=== PATIENT | female | born 1940 | race Caucasian/White ===

== ENCOUNTER 2023-08-07 20:11 | Inpatient (IN) | payer MEDICARE, OTHER ==
[~2023-08-07] VITALS: Ht 157.5 cm; Wt 48.1 kg
[2023-08-07] MEDS ORDERED: DEXAMETHASONE SOD PHOSPHATE 4 MG INJ IV ONE (20:30)
[2023-08-07] MEDS ORDERED: IV NORMAL SALINE 1000 ML BAG IV ONE (20:30)
[2023-08-07] MEDS ORDERED: AZITHROMYCIN IV 500 MG in IV DEXTROSE 5% 250 ML IV ONE (20:30)
[2023-08-07] MEDS ORDERED: CEFTRIAXONE 1 G in IV DEXTROSE 5% 50 ML IV ONE (20:30)
[2023-08-07 21:04] LABS: BASOPHILS # (AUTO) 0.1 K/UL (0.0-0.2); BASOPHILS % (AUTO) 1.1 % (0.0-2.0); EOSINOPHILS # (AUTO) 0.1 K/uL (0.0-0.7); EOSINOPHILS % (AUTO) 0.5 % (0.0-7.0); HEMATOCRIT 29.6 % (31.2-41.9); HEMOGLOBIN 9.5 g/dL (10.9-14.3); LYMPHOCYTES # (AUTO) 0.7 K/uL (0.8-4.8); LYMPHOCYTES % (AUTO) 5.9 % (20.5-51.5); MEAN CORPUSCULAR HGB CONC 32 g/dL (32.3-35.6); MEAN CORPUSCULAR VOLUME 68.8 fL (75.5-95.3); MONOCYTES # (AUTO) 0.5 K/uL (0.1-1.30); MONOCYTES % (AUTO) 4.4 % (0.0-11.0); NEUTROPHILS # (AUTO) 9.8 K/uL (1.8-8.9); NEUTROPHILS % (AUTO) 88.1 % (38.5-71.5); PLATELET COUNT (AUTO) 186 K/uL (179-408); RED BLOOD CELL COUNT(AUTO) 4.31 MIL/uL (3.63-4.92); RED CELL DISTRIBUTION WIDTH 15.3 % (12.3-17.7); WHITE BLOOD COUNT (AUTO) 11.1 K/uL (3.8-11.8)
[2023-08-07 21:09] LABS: DIFFERENTIAL COMMENT 1
[2023-08-07] MEDS ORDERED: CEFTRIAXONE /D5W 50ML IVPB **ER PYXIS IV ONE (21:12)
[2023-08-07 21:35] LABS: CALCIUM 8.9 mg/dL (8.5-10.1); CARBON DIOXIDE 24 mmol/L (21-32); CHLORIDE 86 mmol/L (98-107); CREATININE 0.8 mg/dL (0.6-1.3); GLUCOSE 210 mg/dL (74-106); POTASSIUM 4.5 mmol/L (3.5-5.1); SODIUM SERUM 125 mmol/L (136-145); UREA NITROGEN, BLOOD 23 mg/dL (7-18)
[2023-08-07] MEDS ORDERED: DEXAMETHASONE SOD PHOSPHATE 4 MG INJ ONE (21:43)
[2023-08-07] MEDS ORDERED: DEXAMETHASONE SOD PHOSPHATE 10 MG INJ ONE ×2 (21:45→22:43)
[2023-08-07 21:46] LABS: ANISOCYTOSIS 1+; HYPOCHROMASIA 2+; LYMPHOCYTES % (MANUAL) 10 % (20-40); MONOCYTES % (MANUAL) 4 % (2-10); NEUTROPHILS % (MANUAL) 86 % (42-75); PLATELET ESTIMATE ADEQUATE
[2023-08-07 21:48] LABS: ALANINE AMINOTRANSFERASE 52 U/L (14-59); ALBUMIN 3.7 g/dL (3.4-5.0); ALKALINE PHOSPHATASE 96 U/L (50-136); ASPARTATE AMINOTRANSFERASE 36 U/L (15-37); BILIRUBIN,DIRECT 0.3 mg/dL (0.0-0.2); BILIRUBIN,TOTAL 0.6 mg/dL (0.2-1.0); NT-PRO BNP 32976 pg/mL (0-125); TOTAL PROTEIN, SERUM 7.5 g/dL (6.4-8.2)
[2023-08-07] MEDS ORDERED: AZITHROMYCIN 500MG/ D5W 250ML IVPB **ER PYXIS ONLY IV ONE (22:41)
[2023-08-08] VITALS (7 sets, daily range): BP systolic 131–162; BP diastolic 57–87; TEMP 97.6–98.6; O2SAT 93–99
[2023-08-08] MEDS ORDERED: ACETAMINOPHEN 325 MG TABLET PO PRN (00:30)
[2023-08-08] MEDS ORDERED: MORPHINE SULFATE 2 MG/1 ML DISP.SYRIN IVP PRN (00:30)
[2023-08-08] MEDS ORDERED: ONDANSETRON 4 MG/2 ML VIAL IV PRN (00:30)
[2023-08-08] MEDS ORDERED: hydrALAZINE HCL 20 MG/1 ML VIAL IV PRN (00:30)
[2023-08-08] MEDS ORDERED: DEXTROSE 50% 50 ML DISP.SYRIN IV PRN (00:30)
[2023-08-08 02:17] LABS: *BILIRUBIN,URIN NEGATIVE (NEGATIVE); *BLOOD, URINE 1+ (NEGATIVE); *CLARITY,URINE SLIGHTLY CLOUDY (CLEAR); *COLOR,URINE YELLOW (YELLOW); *KETONES,URINE 1+ (NEGATIVE); *UROBILINOGEN,URINE 0.2 E.U./dl (NORMAL); LEUKOCYTE ESTERASE ,URINE NEGATIVE (NEGATIVE); NITRITE, URINE NEGATIVE (NEGATIVE)
[2023-08-08 02:22] LABS: *PROTEIN,URINE 3+ (NEGATIVE); UGLUCOSE 2+ (NEGATIVE)
[2023-08-08 03:39] LABS: BACTERIA,URINE MANY /HPF (NONE SEEN); WBC,URINE 0-3 /HPF (0-3)
[2023-08-08 03:40] LABS: SQUAMOUS EPITHELIAL CELL,UR FEW /HPF (NONE SEEN)
[2023-08-08] MEDS ORDERED: CEFEPIME HCL 1 G VIAL ONE (03:44)
[2023-08-08] MEDS: BLOOD SUGAR DIAGNOSTIC 1 EACH STRIP VI SCH ×4 (05:46→21:59)
[2023-08-08] MEDS ORDERED: FUROSEMIDE 40 MG/4 ML VIAL IV SCH (09:00)
[2023-08-08] MEDS: FLUTICASONE/VILANTEROL 1 EACH BLST.W.DEV INH SCH (11:03)
[2023-08-08] MEDS: HEPARIN SODIUM,PORCINE 5,000 UNITS/ML VIAL SQ SCH ×2 (11:04→17:15)
[2023-08-08] MEDS: CEFEPIME HCL 1 G in IV DEXTROSE 5% 50 ML IV SCH ×2 (11:04→21:59)
[2023-08-08] MEDS: INSULIN REGULAR, HUMAN 300 UNIT/3 ML VIAL SQ PRN ×3 (11:42→22:33)
[2023-08-08 12:53] LABS: BASOPHILS % (AUTO) 0.1 % (0.0-2.0); HEMATOCRIT 27.2 % (31.2-41.9); HEMOGLOBIN 8.9 g/dL (10.9-14.3); LYMPHOCYTES # (AUTO) 0.4 K/uL (0.8-4.8); LYMPHOCYTES % (AUTO) 9.3 % (20.5-51.5); MEAN CORPUSCULAR HEMOGLOBIN 22.4 uug (24.7-32.8); MEAN CORPUSCULAR HGB CONC 33 g/dL (32.3-35.6); MONOCYTES # (AUTO) 0.2 K/uL (0.1-1.30); MONOCYTES % (AUTO) 4.4 % (0.0-11.0); NEUTROPHILS # (AUTO) 3.6 K/uL (1.8-8.9); NEUTROPHILS % (AUTO) 86.2 % (38.5-71.5); PLATELET COUNT (AUTO) 173 K/uL (179-408); RED CELL DISTRIBUTION WIDTH 15.5 % (12.3-17.7); WHITE BLOOD COUNT (AUTO) 4.2 K/uL (3.8-11.8)
[2023-08-08 13:08] LABS: DIFFERENTIAL COMMENT 1
[2023-08-08 13:12] LABS: ALANINE AMINOTRANSFERASE 41 U/L (14-59); ALBUMIN 3.1 g/dL (3.4-5.0); ALKALINE PHOSPHATASE 88 U/L (50-136); ASPARTATE AMINOTRANSFERASE 18 U/L (15-37); BILIRUBIN,TOTAL 0.4 mg/dL (0.2-1.0); CALCIUM 8.1 mg/dL (8.5-10.1); CARBON DIOXIDE 25 mmol/L (21-32); CHLORIDE 86 mmol/L (98-107); CREATININE 0.7 mg/dL (0.6-1.3); GLUCOSE 341 mg/dL (74-106); PHOSPHOROUS 3.5 mg/dL (2.5-4.9); POTASSIUM 4.1 mmol/L (3.5-5.1); SODIUM SERUM 123 mmol/L (136-145); TOTAL PROTEIN, SERUM 6.5 g/dL (6.4-8.2); UREA NITROGEN, BLOOD 21 mg/dL (7-18)
[2023-08-08 13:36] LABS: CHOLESTEROL 136 mg/dL (<200); HDL CHOLESTEROL 64 mg/dL (40-60); TRIGLYCERIDES 45 MG/DL (30-150)
[2023-08-08 13:40] LABS: IRON, SERUM 18 ug/dL (50-175)
[2023-08-08 14:15] LABS: MAGNESIUM 0.9 mg/dL (1.8-2.4)
[2023-08-08] MEDS: MAGNESIUM SULFATE/D5W 100 ML IV SCH ×4 (15:01→20:26)
[2023-08-08] MEDS: ALBUTEROL SULFATE 2.5 MG/3 ML NEBU NEB PRN (21:29)
[2023-08-08] MEDS: GUAIFENESIN/DEXTROMETHORPHAN 5 ML UDC PO PRN (21:59)
[2023-08-09] VITALS (7 sets, daily range): BP systolic 119–141; BP diastolic 33–64; TEMP 97.5–98.6; O2SAT 96–100
[2023-08-09] MEDS: ALBUTEROL SULFATE 2.5 MG/3 ML NEBU NEB PRN (01:47)
[2023-08-09] MEDS: GUAIFENESIN/DEXTROMETHORPHAN 5 ML UDC PO PRN (02:22)
[2023-08-09 06:36] LABS: BASOPHILS % (AUTO) 0.1 % (0.0-2.0); EOSINOPHILS % (AUTO) 0.3 % (0.0-7.0); HEMATOCRIT 23.5 % (31.2-41.9); HEMOGLOBIN 7.9 g/dL (10.9-14.3); LYMPHOCYTES # (AUTO) 1.4 K/uL (0.8-4.8); LYMPHOCYTES % (AUTO) 18.1 % (20.5-51.5); MEAN CORPUSCULAR HEMOGLOBIN 22.5 uug (24.7-32.8); MEAN CORPUSCULAR HGB CONC 34 g/dL (32.3-35.6); MEAN CORPUSCULAR VOLUME 67.2 fL (75.5-95.3); MONOCYTES # (AUTO) 0.6 K/uL (0.1-1.30); MONOCYTES % (AUTO) 7.1 % (0.0-11.0); NEUTROPHILS # (AUTO) 5.8 K/uL (1.8-8.9); NEUTROPHILS % (AUTO) 74.4 % (38.5-71.5); PLATELET COUNT (AUTO) 203 K/uL (179-408); RED CELL DISTRIBUTION WIDTH 15.2 % (12.3-17.7); WHITE BLOOD COUNT (AUTO) 7.9 K/uL (3.8-11.8)
[2023-08-09 06:51] LABS: DIFFERENTIAL COMMENT 1
[2023-08-09] MEDS: BLOOD SUGAR DIAGNOSTIC 1 EACH STRIP VI SCH ×4 (06:56→21:00)
[2023-08-09 07:06] LABS: IRON, SERUM 21 ug/dL (50-175); THYROID STIMULATING HORMONE 0.532 mIU/mL (0.358-3.740)
[2023-08-09 07:20] LABS: ALANINE AMINOTRANSFERASE 37 U/L (14-59); ALBUMIN 2.8 g/dL (3.4-5.0); ALKALINE PHOSPHATASE 69 U/L (50-136); ASPARTATE AMINOTRANSFERASE 15 U/L (15-37); BILIRUBIN,TOTAL 0.3 mg/dL (0.2-1.0); CALCIUM 8.3 mg/dL (8.5-10.1); CARBON DIOXIDE 27 mmol/L (21-32); CHLORIDE 88 mmol/L (98-107); CREATININE 0.7 mg/dL (0.6-1.3); FERRITIN 180 ng/mL (8-252); GLUCOSE 157 mg/dL (74-106); MAGNESIUM 2.2 mg/dL (1.8-2.4); PHOSPHOROUS 2.8 mg/dL (2.5-4.9); POTASSIUM 3.4 mmol/L (3.5-5.1); SODIUM SERUM 124 mmol/L (136-145); TOTAL PROTEIN, SERUM 5.7 g/dL (6.4-8.2); UREA NITROGEN, BLOOD 23 mg/dL (7-18); URIC ACID 3.6 mg/dL (2.6-6.0)
[2023-08-09] MEDS ORDERED: FUROSEMIDE 40 MG/4 ML VIAL IV SCH (09:00)
[2023-08-09] MEDS ORDERED: SITA100T PO (10:45)
[2023-08-09] MEDS ORDERED: GLIP10TA11 PO (10:45)
[2023-08-09] MEDS ORDERED: LOSA25TA27 PO (10:49)
[2023-08-09] MEDS ORDERED: MIRT-94 PO (10:49)
[2023-08-09] MEDS ORDERED: ASPI81TA31 PO (10:49)
[2023-08-09] MEDS ORDERED: ATOR20TA PO (10:49)
[2023-08-09] MEDS ORDERED: OMEP40CA21 PO (10:49)
[2023-08-09] MEDS ORDERED: METF750T46 PO (10:49)
[2023-08-09] MEDS ORDERED: METO25TA6 PO (10:49)
[2023-08-09] MEDS ORDERED: LEVO5TAB13 PO (10:49)
[2023-08-09] MEDS: HEPARIN SODIUM,PORCINE 5,000 UNITS/ML VIAL SQ SCH ×2 (11:01→18:03)
[2023-08-09] MEDS: FLUTICASONE/VILANTEROL 1 EACH BLST.W.DEV INH SCH (11:02)
[2023-08-09] MEDS: CEFEPIME HCL 1 G in IV DEXTROSE 5% 50 ML IV SCH (11:02)
[2023-08-09] MEDS ORDERED: POTASSIUM CHLORIDE 20 MEQ POWDER PACKET PO ONE (11:45)
[2023-08-09] MEDS: INSULIN REGULAR, HUMAN 300 UNIT/3 ML VIAL SQ PRN ×2 (12:05→18:27)
[2023-08-10] VITALS (8 sets, daily range): BP systolic 119–142; BP diastolic 57–71; TEMP 97.5–98.6; O2SAT 94–100
[2023-08-10] MEDS: GUAIFENESIN/DEXTROMETHORPHAN 5 ML UDC PO PRN ×3 (00:17→20:54)
[2023-08-10] MEDS: ALBUTEROL SULFATE 2.5 MG/3 ML NEBU NEB PRN ×2 (01:56→22:45)
[2023-08-10] MEDS: BLOOD SUGAR DIAGNOSTIC 1 EACH STRIP VI SCH ×4 (06:45→20:11)
[2023-08-10 06:51] LABS: BASOPHILS % (AUTO) 0.3 % (0.0-2.0); EOSINOPHILS % (AUTO) 0.4 % (0.0-7.0); HEMATOCRIT 27.8 % (31.2-41.9); HEMOGLOBIN 9.2 g/dL (10.9-14.3); LYMPHOCYTES # (AUTO) 1.1 K/uL (0.8-4.8); LYMPHOCYTES % (AUTO) 16.6 % (20.5-51.5); MEAN CORPUSCULAR HEMOGLOBIN 22.3 uug (24.7-32.8); MEAN CORPUSCULAR HGB CONC 33 g/dL (32.3-35.6); MEAN CORPUSCULAR VOLUME 67.3 fL (75.5-95.3); MONOCYTES # (AUTO) 0.6 K/uL (0.1-1.30); MONOCYTES % (AUTO) 9.3 % (0.0-11.0); NEUTROPHILS # (AUTO) 4.8 K/uL (1.8-8.9); NEUTROPHILS % (AUTO) 73.4 % (38.5-71.5); PLATELET COUNT (AUTO) 244 K/uL (179-408); RED BLOOD CELL COUNT(AUTO) 4.13 MIL/uL (3.63-4.92); WHITE BLOOD COUNT (AUTO) 6.6 K/uL (3.8-11.8)
[2023-08-10 07:15] LABS: DIFFERENTIAL COMMENT 1
[2023-08-10 07:27] LABS: CALCIUM 8.7 mg/dL (8.5-10.1); CARBON DIOXIDE 31 mmol/L (21-32); CHLORIDE 89 mmol/L (98-107); GLUCOSE 203 mg/dL (74-106); MAGNESIUM 1.6 mg/dL (1.8-2.4); PHOSPHOROUS 3.4 mg/dL (2.5-4.9); POTASSIUM 3.7 mmol/L (3.5-5.1); SODIUM SERUM 128 mmol/L (136-145); UREA NITROGEN, BLOOD 21 mg/dL (7-18)
[2023-08-10] MEDS ORDERED: POTASSIUM CHLORIDE 20 MEQ POWDER PACKET PO ONE (08:30)
[2023-08-10] MEDS: CEFEPIME HCL 1 G in IV DEXTROSE 5% 50 ML IV SCH (09:31)
[2023-08-10] MEDS: FLUTICASONE/VILANTEROL 1 EACH BLST.W.DEV INH SCH (09:31)
[2023-08-10] MEDS: HEPARIN SODIUM,PORCINE 5,000 UNITS/ML VIAL SQ SCH ×2 (09:33→17:46)
[2023-08-10] MEDS: MAGNESIUM SULFATE/D5W 100 ML IV SCH ×2 (10:16→12:44)
[2023-08-10] MEDS: INSULIN REGULAR, HUMAN 300 UNIT/3 ML VIAL SQ PRN ×2 (12:45→17:46)
[2023-08-10] MEDS: glipiZIDE 5 MG TABLET PO SCH (17:42)
[2023-08-10] MEDS: METFORMIN HCL 500 MG TABLET PO SCH (17:42)
[2023-08-10] MEDS: METOPROLOL TARTRATE 25 MG TABLET PO SCH (17:43)
[2023-08-10] MEDS: MIRTAZAPINE 15 MG TABLET PO SCH (20:12)
[2023-08-11] MEDS: GUAIFENESIN/DEXTROMETHORPHAN 5 ML UDC PO PRN ×3 (03:31→21:02)
[2023-08-11] MEDS: ALBUTEROL SULFATE 2.5 MG/3 ML NEBU NEB PRN (03:35)
[2023-08-11 03:37] VITALS: O2SAT 98
[2023-08-11 03:47] VITALS: O2SAT 99
[2023-08-11 04:00] VITALS: BP 121/56; TEMP 97.9; O2SAT 97
[2023-08-11] MEDS: BLOOD SUGAR DIAGNOSTIC 1 EACH STRIP VI SCH ×4 (06:33→20:53)
[2023-08-11] MEDS: glipiZIDE 5 MG TABLET PO SCH ×2 (06:33→17:27)
[2023-08-11] MEDS ORDERED: LOSARTAN POTASSIUM 25 MG TABLET PO SCH (09:00)
[2023-08-11] MEDS: METFORMIN HCL 500 MG TABLET PO SCH ×2 (09:07→17:27)
[2023-08-11] MEDS: ASPIRIN 81 MG TAB.CHEW PO SCH (09:07)
[2023-08-11] MEDS: METOPROLOL TARTRATE 25 MG TABLET PO SCH ×2 (09:08→17:28)
[2023-08-11] MEDS: PROTEIN SUPPLEMENT (PROSTAT) 30 ML LIQUID PO SCH (09:08)
[2023-08-11] MEDS: CEFEPIME HCL 1 G in IV DEXTROSE 5% 50 ML IV SCH (09:09)
[2023-08-11] MEDS: FLUTICASONE/VILANTEROL 1 EACH BLST.W.DEV INH SCH (09:09)
[2023-08-11] MEDS: INSULIN REGULAR, HUMAN 300 UNIT/3 ML VIAL SQ PRN ×2 (09:14→13:23)
[2023-08-11] MEDS: HEPARIN SODIUM,PORCINE 5,000 UNITS/ML VIAL SQ SCH ×2 (09:15→17:30)
[2023-08-11 10:19] LABS: ALANINE AMINOTRANSFERASE 21 U/L (14-59); ALBUMIN 2.9 g/dL (3.4-5.0); ALKALINE PHOSPHATASE 76 U/L (50-136); ASPARTATE AMINOTRANSFERASE 9 U/L (15-37); BILIRUBIN,TOTAL 0.3 mg/dL (0.2-1.0); CALCIUM 8.9 mg/dL (8.5-10.1); CARBON DIOXIDE 30 mmol/L (21-32); CHLORIDE 91 mmol/L (98-107); CREATININE 0.7 mg/dL (0.6-1.3); GLUCOSE 201 mg/dL (74-106); MAGNESIUM 1.8 mg/dL (1.8-2.4); PHOSPHOROUS 3.8 mg/dL (2.5-4.9); POTASSIUM 3.9 mmol/L (3.5-5.1); SODIUM SERUM 128 mmol/L (136-145); TOTAL PROTEIN, SERUM 6.3 g/dL (6.4-8.2); UREA NITROGEN, BLOOD 19 mg/dL (7-18)
[2023-08-11 10:28] LABS: BASOPHILS % (AUTO) 0.8 % (0.0-2.0); DIFFERENTIAL COMMENT 0; EOSINOPHILS % (AUTO) 0.6 % (0.0-7.0); HEMATOCRIT 26.4 % (31.2-41.9); HEMOGLOBIN 8.6 g/dL (10.9-14.3); LYMPHOCYTES % (AUTO) 16.9 % (20.5-51.5); MEAN CORPUSCULAR HEMOGLOBIN 22.1 uug (24.7-32.8); MEAN CORPUSCULAR HGB CONC 33 g/dL (32.3-35.6); MONOCYTES # (AUTO) 0.5 K/uL (0.1-1.30); MONOCYTES % (AUTO) 8.9 % (0.0-11.0); NEUTROPHILS # (AUTO) 4.4 K/uL (1.8-8.9); NEUTROPHILS % (AUTO) 72.8 % (38.5-71.5); PLATELET COUNT (AUTO) 244 K/uL (179-408); RED BLOOD CELL COUNT(AUTO) 3.88 MIL/uL (3.63-4.92); RED CELL DISTRIBUTION WIDTH 15.1 % (12.3-17.7); WHITE BLOOD COUNT (AUTO) 6.1 K/uL (3.8-11.8)
[2023-08-11 10:43] LABS: NEUTROPHILS % (MANUAL) 0 % (42-75)
[2023-08-11 10:44] LABS: LYMPHOCYTES % (MANUAL) 0 % (20-40)
[2023-08-11 11:32] VITALS: BP 97/46; TEMP 98.3; O2SAT 98
[2023-08-11 16:00] VITALS: BP 110/52; TEMP 98.4; O2SAT 96
[2023-08-11 20:00] VITALS: BP 142/65; TEMP 98.3; O2SAT 96
[2023-08-11] MEDS: MIRTAZAPINE 15 MG TABLET PO SCH (20:52)
[2023-08-12 04:00] VITALS: BP 120/51; TEMP 98.5; O2SAT 94
[2023-08-12] MEDS: BLOOD SUGAR DIAGNOSTIC 1 EACH STRIP VI SCH ×2 (06:51→12:20)
[2023-08-12] MEDS: glipiZIDE 5 MG TABLET PO SCH (06:53)
[2023-08-12 07:41] LABS: BASOPHILS % (AUTO) 0.3 % (0.0-2.0); EOSINOPHILS # (AUTO) 0.1 K/uL (0.0-0.7); HEMATOCRIT 25.6 % (31.2-41.9); HEMOGLOBIN 8.4 g/dL (10.9-14.3); LYMPHOCYTES # (AUTO) 1.8 K/uL (0.8-4.8); LYMPHOCYTES % (AUTO) 23.6 % (20.5-51.5); MEAN CORPUSCULAR HEMOGLOBIN 22.5 uug (24.7-32.8); MEAN CORPUSCULAR HGB CONC 33 g/dL (32.3-35.6); MEAN CORPUSCULAR VOLUME 68.6 fL (75.5-95.3); MONOCYTES # (AUTO) 0.7 K/uL (0.1-1.30); MONOCYTES % (AUTO) 9.3 % (0.0-11.0); NEUTROPHILS # (AUTO) 4.8 K/uL (1.8-8.9); NEUTROPHILS % (AUTO) 64.8 % (38.5-71.5); PLATELET COUNT (AUTO) 258 K/uL (179-408); RED BLOOD CELL COUNT(AUTO) 3.72 MIL/uL (3.63-4.92); RED CELL DISTRIBUTION WIDTH 15.1 % (12.3-17.7); WHITE BLOOD COUNT (AUTO) 7.5 K/uL (3.8-11.8)
[2023-08-12 07:55] LABS: DIFFERENTIAL COMMENT 1
[2023-08-12 07:56] LABS: CALCIUM 8.9 mg/dL (8.5-10.1); CARBON DIOXIDE 31 mmol/L (21-32); CHLORIDE 94 mmol/L (98-107); CREATININE 0.6 mg/dL (0.6-1.3); GLUCOSE 133 mg/dL (74-106); MAGNESIUM 1.7 mg/dL (1.8-2.4); PHOSPHOROUS 3.9 mg/dL (2.5-4.9); POTASSIUM 4.3 mmol/L (3.5-5.1); SODIUM SERUM 130 mmol/L (136-145); UREA NITROGEN, BLOOD 30 mg/dL (7-18)
[2023-08-12] MEDS: METOPROLOL TARTRATE 25 MG TABLET PO SCH (09:00)
[2023-08-12 09:28] VITALS: BP 108/49; TEMP 98.5; O2SAT 91
[2023-08-12] MEDS ORDERED: ALBU18HF2 INH (09:28)
[2023-08-12] MEDS ORDERED: AZIT500T4 PO (09:28)
[2023-08-12] MEDS ORDERED: FLUT1BLS INH (09:28)
[2023-08-12] MEDS ORDERED: MAGNESIUM OXIDE 400 MG TABLET PO ONE (09:30)
[2023-08-12] MEDS: ASPIRIN 81 MG TAB.CHEW PO SCH (09:31)
[2023-08-12] MEDS: METFORMIN HCL 500 MG TABLET PO SCH (09:31)
[2023-08-12] MEDS: HEPARIN SODIUM,PORCINE 5,000 UNITS/ML VIAL SQ SCH (09:35)
[2023-08-12] MEDS: PROTEIN SUPPLEMENT (PROSTAT) 30 ML LIQUID PO SCH (09:36)
[2023-08-12] MEDS: FLUTICASONE/VILANTEROL 1 EACH BLST.W.DEV INH SCH (09:37)
[2023-08-12] MEDS: CEFEPIME HCL 1 G in IV DEXTROSE 5% 50 ML IV SCH (09:37)
[2023-08-12 11:57] VITALS: BP 122/59; TEMP 98.4; O2SAT 95
[2023-08-12] MEDS: INSULIN REGULAR, HUMAN 300 UNIT/3 ML VIAL SQ PRN (12:22)
[2023-08-12] MEDS: GUAIFENESIN/DEXTROMETHORPHAN 5 ML UDC PO PRN (12:51)
[2023-08-12 12:54] VITALS: BP 115/45; TEMP 99; O2SAT 95
[2023-08-12] MEDS ORDERED: CEFEPIME HCL 1 G in IV DEXTROSE 5% 50 ML IV SCH (17:00)
== END 2023-08-12 13:00 | DRG 193 ==
LOC: ER 20:13 → TELE3 08-08 02:06 → MEDSURG3 08-09 13:00 → MED 08-09 19:18
PROVIDERS: ADMIT Internal Medicine; ATTEND Internal Medicine
DX: J15.9 Unspecified bacterial pneumonia (principal); G93.41 Metabolic encephalopathy; I21.A1 Myocardial infarction type 2; J96.00 Acute respiratory failure, unspecified whether with hypoxia or hypercapnia; I50.33 Acute on chronic diastolic (congestive) heart failure; J98.11 Atelectasis; I45.2 Bifascicular block; E87.1 Hypo-osmolality and hyponatremia; N39.0 Urinary tract infection, site not specified; D68.59 Other primary thrombophilia; I31.39 Other pericardial effusion (noninflammatory); I11.0 Hypertensive heart disease with heart failure; E78.5 Hyperlipidemia, unspecified; I70.0 Atherosclerosis of aorta; D50.9 Iron deficiency anemia, unspecified; B95.4 Other streptococcus as the cause of diseases classified elsewhere; Z74.09 Other reduced mobility; E11.65 Type 2 diabetes mellitus with hyperglycemia; K44.9 Diaphragmatic hernia without obstruction or gangrene; Z88.0 Allergy status to penicillin; I08.0 Rheumatic disorders of both mitral and aortic valves; H91.90 Unspecified hearing loss, unspecified ear; J45.909 Unspecified asthma, uncomplicated; F03.90 Unspecified dementia, unspecified severity, without behavioral disturbance, psychotic disturbance, mood disturbance, and anxiety; I25.10 Atherosclerotic heart disease of native coronary artery without angina pectoris; Z79.82 Long term (current) use of aspirin; Z79.84 Long term (current) use of oral hypoglycemic drugs; Z79.899 Other long term (current) drug therapy
CPT/HCPCS: 36415; 70030-TC; 71045; 71250; 82533; 83550; 83605; 83735; 84100; 84443; 84484; 84550; 85025; 85730; 86140; 87040; 93005; 93307; 94640; 94664; C1758; G0378; J0456; J0692; J0696; J1100; J1644; J1815; J1940; J2405; J3475; J7040

== ENCOUNTER 2023-08-12 13:13 | Inpatient (IN) | payer MEDICARE, OTHER ==
[~2023-08-12] VITALS: Ht 157.5 cm; Wt 44.4 kg
[~2023-08-12 13:13] MED LIST: ALBU18HF2 INH; ASPI81TA31 PO; ATOR20TA PO; AZIT500T4 PO; FLUT1BLS INH; GLIP10TA11 PO; LEVO5TAB13 PO; LOSA25TA27 PO; METF750T46 PO; METO25TA6 PO; MIRT-94 PO; OMEP40CA21 PO; SITA100T PO
[2023-08-12] MEDS ORDERED: ACETAMINOPHEN 325 MG TABLET PO PRN (14:30)
[2023-08-12] MEDS ORDERED: REMEDY ESSENTIAL ZINC PASTE 113 GM TP PRN (14:30)
[2023-08-12] MEDS ORDERED: HYDROCODONE/APAP 5-325MG TABLET PO PRN (14:30)
[2023-08-12] MEDS ORDERED: MAGNESIUM HYDROXIDE 30 ML LIQUID UDC PO PRN (14:30)
[2023-08-12 15:07] VITALS: BP 118/44; TEMP 98.2; O2SAT 94
[2023-08-12] MEDS ORDERED: ALBUTEROL SULFATE 8 GM HFA.AER.AD INH PRN (18:30)
[2023-08-12] MEDS: METFORMIN XR 500 MG TAB.SR.24H PO ONE (18:49)
[2023-08-12] MEDS: METOPROLOL TARTRATE 25 MG TABLET PO SCH (18:49)
[2023-08-12 20:00] VITALS: TEMP 99
[2023-08-12 20:05] VITALS: BP 123/52; TEMP 98; O2SAT 93
[2023-08-12] MEDS: DOCUSATE SODIUM 100 MG CAPSULE PO SCH (20:23)
[2023-08-12] MEDS: MIRTAZAPINE 15 MG TABLET PO SCH (20:23)
[2023-08-12] MEDS: ATORVASTATIN 20 MG TABLET PO SCH (20:23)
[2023-08-12] MEDS ORDERED: CEFEPIME HCL 1 G in IV DEXTROSE 5% 50 ML IV SCH (21:00)
[2023-08-13 04:05] VITALS: BP 127/54; TEMP 98.4; O2SAT 95
[2023-08-13] MEDS ORDERED: ALBUTEROL SULFATE 2.5 MG/3 ML NEBU NEB PRN (04:45)
[2023-08-13] MEDS: GUAIFENESIN/DEXTROMETHORPHAN 5 ML UDC PO PRN (05:29)
[2023-08-13] MEDS: PANTOPRAZOLE SODIUM 40 MG TABLET.DR PO SCH (06:10)
[2023-08-13 06:54] LABS: BASOPHILS % (AUTO) 0.6 % (0.0-2.0); EOSINOPHILS # (AUTO) 0.2 K/uL (0.0-0.7); EOSINOPHILS % (AUTO) 3.1 % (0.0-7.0); HEMATOCRIT 24.9 % (31.2-41.9); LYMPHOCYTES # (AUTO) 1.6 K/uL (0.8-4.8); LYMPHOCYTES % (AUTO) 27.8 % (20.5-51.5); MEAN CORPUSCULAR HEMOGLOBIN 22.1 uug (24.7-32.8); MEAN CORPUSCULAR HGB CONC 32 g/dL (32.3-35.6); MEAN CORPUSCULAR VOLUME 68.7 fL (75.5-95.3); MONOCYTES # (AUTO) 0.6 K/uL (0.1-1.30); MONOCYTES % (AUTO) 9.7 % (0.0-11.0); NEUTROPHILS # (AUTO) 3.4 K/uL (1.8-8.9); NEUTROPHILS % (AUTO) 58.8 % (38.5-71.5); PLATELET COUNT (AUTO) 232 K/uL (179-408); RED BLOOD CELL COUNT(AUTO) 3.62 MIL/uL (3.63-4.92); RED CELL DISTRIBUTION WIDTH 14.7 % (12.3-17.7); WHITE BLOOD COUNT (AUTO) 5.8 K/uL (3.8-11.8)
[2023-08-13 07:12] LABS: DIFFERENTIAL COMMENT 1
[2023-08-13 07:14] LABS: CARBON DIOXIDE 30 mmol/L (21-32); CHLORIDE 97 mmol/L (98-107); CHOLESTEROL 133 mg/dL (<200); CREATININE 0.6 mg/dL (0.6-1.3); GLUCOSE 188 mg/dL (74-106); HDL CHOLESTEROL 53 mg/dL (40-60); MAGNESIUM 1.6 mg/dL (1.8-2.4); PHOSPHOROUS 3.6 mg/dL (2.5-4.9); POTASSIUM 4.1 mmol/L (3.5-5.1); SODIUM SERUM 134 mmol/L (136-145); TRIGLYCERIDES 124 MG/DL (30-150); UREA NITROGEN, BLOOD 17 mg/dL (7-18)
[2023-08-13 07:39] VITALS: BP 134/57; TEMP 98.7; O2SAT 96
[2023-08-13] MEDS ORDERED: METFORMIN HCL 750 MG PO SCH (08:00)
[2023-08-13] MEDS: METOPROLOL TARTRATE 25 MG TABLET PO SCH (09:00)
[2023-08-13] MEDS ORDERED: Medication Not On Formulary EA (Omeprazole 40 MG) PO SCH (09:00)
[2023-08-13] MEDS ORDERED: LEVOCETIRIZINE DIHYDROCHLORIDE PO SCH (09:00)
[2023-08-13] MEDS ORDERED: CEFEPIME HCL 1 G in IV DEXTROSE 5% 50 ML IV SCH (09:00)
[2023-08-13] MEDS ORDERED: Medication Not On Formulary EA (Sitagliptin Phosphate (Januvia) 100 MG) PO SCH (09:00)
[2023-08-13] MEDS: AZITHROMYCIN 250 MG TABLET PO SCH (09:18)
[2023-08-13] MEDS: ASPIRIN 81 MG TAB.CHEW PO SCH (09:20)
[2023-08-13] MEDS: LINAGLIPTIN 5 MG TABLET PO SCH (09:20)
[2023-08-13] MEDS: METFORMIN XR 500 MG TAB.SR.24H PO SCH ×2 (09:21→17:20)
[2023-08-13] MEDS: LOSARTAN POTASSIUM 25 MG TABLET PO SCH (09:21)
[2023-08-13] MEDS: MAGNESIUM OXIDE 400 MG TABLET PO ONE (09:37)
[2023-08-13] MEDS: FLUTICASONE/VILANTEROL 1 EACH BLST.W.DEV INH SCH (10:32)
[2023-08-13 21:32] VITALS: BP 128/47; TEMP 97.9; O2SAT 99
[2023-08-14] MEDS: ONDANSETRON 4 MG/2 ML VIAL IV PRN (01:10)
[2023-08-14 04:15] VITALS: BP 148/52; TEMP 97.7; O2SAT 99
[2023-08-14 08:00] VITALS: TEMP 97.6
[2023-08-14 16:07] VITALS: TEMP 97.2
[2023-08-14 20:24] VITALS: BP 127/48; TEMP 98.1; O2SAT 94
[2023-08-15] MEDS: ZOLPIDEM 5 MG TABLET PO PRN (01:40)
[2023-08-15 04:55] VITALS: BP 114/39; TEMP 97.5; O2SAT 94
[2023-08-15 06:15] LABS: BASOPHILS % (AUTO) 0.6 % (0.0-2.0); EOSINOPHILS # (AUTO) 0.3 K/uL (0.0-0.7); EOSINOPHILS % (AUTO) 4.2 % (0.0-7.0); HEMATOCRIT 27.3 % (31.2-41.9); HEMOGLOBIN 8.9 g/dL (10.9-14.3); LYMPHOCYTES # (AUTO) 1.4 K/uL (0.8-4.8); LYMPHOCYTES % (AUTO) 21.7 % (20.5-51.5); MEAN CORPUSCULAR HEMOGLOBIN 22.4 uug (24.7-32.8); MEAN CORPUSCULAR HGB CONC 33 g/dL (32.3-35.6); MONOCYTES # (AUTO) 0.6 K/uL (0.1-1.30); MONOCYTES % (AUTO) 9.4 % (0.0-11.0); NEUTROPHILS # (AUTO) 4.1 K/uL (1.8-8.9); NEUTROPHILS % (AUTO) 64.1 % (38.5-71.5); PLATELET COUNT (AUTO) 242 K/uL (179-408); RED BLOOD CELL COUNT(AUTO) 3.95 MIL/uL (3.63-4.92); RED CELL DISTRIBUTION WIDTH 15.4 % (12.3-17.7); WHITE BLOOD COUNT (AUTO) 6.4 K/uL (3.8-11.8)
[2023-08-15 06:45] LABS: CARBON DIOXIDE 28 mmol/L (21-32); CHLORIDE 98 mmol/L (98-107); CREATININE 0.7 mg/dL (0.6-1.3); GLUCOSE 158 mg/dL (74-106); MAGNESIUM 1.4 mg/dL (1.8-2.4); SODIUM SERUM 136 mmol/L (136-145); UREA NITROGEN, BLOOD 12 mg/dL (7-18)
[2023-08-15 06:47] LABS: DIFFERENTIAL COMMENT 1
[2023-08-15 08:31] VITALS: BP 122/45; TEMP 97.3; O2SAT 96
[2023-08-15] MEDS: MAGNESIUM OXIDE 400 MG TABLET PO ONE (10:10)
[2023-08-15] MEDS: MAGNESIUM SULFATE/D5W 100 ML IV SCH (10:41)
[2023-08-15] MEDS ORDERED: MAGNESIUM OXIDE 400 MG TABLET PO ONE (11:00)
[2023-08-15 13:07] VITALS: TEMP 97.6
[2023-08-15 15:53] VITALS: BP 138/63; TEMP 98.2; O2SAT 97
[2023-08-15] MEDS: GLUCERNA SHAKE 237 ML CAN PO SCH (18:20)
[2023-08-15 20:00] VITALS: BP 139/64; TEMP 97.9; O2SAT 97
[2023-08-16 04:00] VITALS: BP 122/56; TEMP 98.2; O2SAT 97
[2023-08-16 06:38] LABS: BASOPHILS % (AUTO) 0.4 % (0.0-2.0); EOSINOPHILS # (AUTO) 0.1 K/uL (0.0-0.7); EOSINOPHILS % (AUTO) 1.7 % (0.0-7.0); HEMATOCRIT 26.4 % (31.2-41.9); HEMOGLOBIN 8.6 g/dL (10.9-14.3); LYMPHOCYTES # (AUTO) 1.4 K/uL (0.8-4.8); LYMPHOCYTES % (AUTO) 20.8 % (20.5-51.5); MEAN CORPUSCULAR HEMOGLOBIN 22.6 uug (24.7-32.8); MEAN CORPUSCULAR HGB CONC 33 g/dL (32.3-35.6); MEAN CORPUSCULAR VOLUME 69.2 fL (75.5-95.3); MONOCYTES # (AUTO) 0.5 K/uL (0.1-1.30); MONOCYTES % (AUTO) 7.9 % (0.0-11.0); NEUTROPHILS # (AUTO) 4.7 K/uL (1.8-8.9); NEUTROPHILS % (AUTO) 69.2 % (38.5-71.5); PLATELET COUNT (AUTO) 218 K/uL (179-408); RED BLOOD CELL COUNT(AUTO) 3.81 MIL/uL (3.63-4.92); RED CELL DISTRIBUTION WIDTH 15.1 % (12.3-17.7); WHITE BLOOD COUNT (AUTO) 6.8 K/uL (3.8-11.8)
[2023-08-16 07:05] LABS: CALCIUM 8.8 mg/dL (8.5-10.1); CARBON DIOXIDE 28 mmol/L (21-32); CHLORIDE 96 mmol/L (98-107); CREATININE 0.5 mg/dL (0.6-1.3); GLUCOSE 174 mg/dL (74-106); MAGNESIUM 1.6 mg/dL (1.8-2.4); PHOSPHOROUS 3.4 mg/dL (2.5-4.9); SODIUM SERUM 132 mmol/L (136-145); UREA NITROGEN, BLOOD 14 mg/dL (7-18)
[2023-08-16 07:08] LABS: DIFFERENTIAL COMMENT 1
[2023-08-16 08:00] VITALS: BP 115/59; TEMP 98.3; O2SAT 99
[2023-08-16] MEDS: MAGNESIUM OXIDE 400 MG TABLET PO ONE (10:02)
[2023-08-16] MEDS: MAGNESIUM SULFATE/D5W 100 ML IV SCH (10:02)
[2023-08-16 16:00] VITALS: BP 115/54; TEMP 98.8; O2SAT 96
[2023-08-16 20:15] VITALS: BP 117/53; TEMP 98.7; O2SAT 99
[2023-08-17 05:45] VITALS: BP 123/56; TEMP 97.3; O2SAT 96
[2023-08-17 07:34] VITALS: BP 125/57; TEMP 97.9; O2SAT 98
[2023-08-17 07:46] LABS: BASOPHILS % (AUTO) 0.6 % (0.0-2.0); EOSINOPHILS # (AUTO) 0.1 K/uL (0.0-0.7); HEMATOCRIT 25.9 % (31.2-41.9); HEMOGLOBIN 8.4 g/dL (10.9-14.3); LYMPHOCYTES # (AUTO) 1.4 K/uL (0.8-4.8); LYMPHOCYTES % (AUTO) 22.5 % (20.5-51.5); MEAN CORPUSCULAR HEMOGLOBIN 22.5 uug (24.7-32.8); MEAN CORPUSCULAR HGB CONC 32 g/dL (32.3-35.6); MEAN CORPUSCULAR VOLUME 69.6 fL (75.5-95.3); MONOCYTES # (AUTO) 0.6 K/uL (0.1-1.30); MONOCYTES % (AUTO) 9.2 % (0.0-11.0); NEUTROPHILS % (AUTO) 65.7 % (38.5-71.5); PLATELET COUNT (AUTO) 224 K/uL (179-408); RED BLOOD CELL COUNT(AUTO) 3.72 MIL/uL (3.63-4.92); RED CELL DISTRIBUTION WIDTH 15.7 % (12.3-17.7); WHITE BLOOD COUNT (AUTO) 6.1 K/uL (3.8-11.8)
[2023-08-17 07:56] LABS: CALCIUM 8.7 mg/dL (8.5-10.1); CARBON DIOXIDE 28 mmol/L (21-32); CHLORIDE 97 mmol/L (98-107); CREATININE 0.5 mg/dL (0.6-1.3); GLUCOSE 173 mg/dL (74-106); MAGNESIUM 1.9 mg/dL (1.8-2.4); PHOSPHOROUS 3.7 mg/dL (2.5-4.9); SODIUM SERUM 132 mmol/L (136-145); UREA NITROGEN, BLOOD 17 mg/dL (7-18)
[2023-08-17 08:03] LABS: DIFFERENTIAL COMMENT 1
[2023-08-17 11:55] LABS: EOSINOPHILS % (MANUAL) 5 % (0-8); HYPOCHROMASIA 1+; LYMPHOCYTES % (MANUAL) 24 % (20-40); MONOCYTES % (MANUAL) 2 % (2-10); NEUTROPHILS % (MANUAL) 69 % (42-75); PLATELET ESTIMATE ADEQUATE
[2023-08-17 11:56] LABS: ANISOCYTOSIS 1+
[2023-08-17 15:57] VITALS: BP 100/67; TEMP 98.7; O2SAT 97
[2023-08-17 19:45] VITALS: BP 119/56; TEMP 97.3; O2SAT 96
[2023-08-18 05:15] VITALS: BP 115/53; TEMP 97.7; O2SAT 95
[2023-08-18 08:46] VITALS: BP 124/56; TEMP 98.6; O2SAT 94
[2023-08-18 15:46] VITALS: BP 123/61; TEMP 98.5; O2SAT 96
[2023-08-18 20:05] VITALS: BP 125/60; TEMP 98.8; O2SAT 97
[2023-08-19 04:03] VITALS: BP 130/72; TEMP 98.6; O2SAT 97
[2023-08-19 07:41] VITALS: BP 127/58; TEMP 98.6; O2SAT 98
[2023-08-19 07:53] LABS: BASOPHILS % (AUTO) 0.7 % (0.0-2.0); EOSINOPHILS # (AUTO) 0.1 K/uL (0.0-0.7); HEMATOCRIT 26.1 % (31.2-41.9); HEMOGLOBIN 8.5 g/dL (10.9-14.3); LYMPHOCYTES # (AUTO) 1.4 K/uL (0.8-4.8); LYMPHOCYTES % (AUTO) 24.5 % (20.5-51.5); MEAN CORPUSCULAR HEMOGLOBIN 22.8 uug (24.7-32.8); MEAN CORPUSCULAR HGB CONC 33 g/dL (32.3-35.6); MEAN CORPUSCULAR VOLUME 69.6 fL (75.5-95.3); MONOCYTES # (AUTO) 0.5 K/uL (0.1-1.30); MONOCYTES % (AUTO) 9.6 % (0.0-11.0); NEUTROPHILS # (AUTO) 3.5 K/uL (1.8-8.9); NEUTROPHILS % (AUTO) 63.2 % (38.5-71.5); PLATELET COUNT (AUTO) 223 K/uL (179-408); RED BLOOD CELL COUNT(AUTO) 3.74 MIL/uL (3.63-4.92); WHITE BLOOD COUNT (AUTO) 5.6 K/uL (3.8-11.8)
[2023-08-19 08:00] VITALS: BP 123/59; TEMP 98.4; O2SAT 96
[2023-08-19 08:06] LABS: DIFFERENTIAL COMMENT 1
[2023-08-19 08:18] LABS: CALCIUM 8.8 mg/dL (8.5-10.1); CARBON DIOXIDE 27 mmol/L (21-32); CHLORIDE 98 mmol/L (98-107); CREATININE 0.6 mg/dL (0.6-1.3); GLUCOSE 142 mg/dL (74-106); MAGNESIUM 1.5 mg/dL (1.8-2.4); PHOSPHOROUS 4.1 mg/dL (2.5-4.9); POTASSIUM 3.8 mmol/L (3.5-5.1); SODIUM SERUM 133 mmol/L (136-145); UREA NITROGEN, BLOOD 16 mg/dL (7-18)
[2023-08-19 09:40] LABS: THYROID STIMULATING HORMONE 1.341 mIU/mL (0.358-3.740)
[2023-08-19] MEDS: MAGNESIUM OXIDE 400 MG TABLET PO ONE (09:55)
[2023-08-19] MEDS: MAGNESIUM SULFATE/D5W 100 ML IV SCH (09:56)
[2023-08-19 16:00] VITALS: BP 104/53; TEMP 98.3; O2SAT 99
[2023-08-19 20:00] VITALS: BP_SYST 114; BP_SYST 118; BP_DIAS 61; BP_DIAS 72; TEMP 97.7; O2SAT 98
[2023-08-20 04:00] VITALS: BP 104/60; TEMP 97.6; O2SAT 97
[2023-08-20 07:51] LABS: BASOPHILS % (AUTO) 0.4 % (0.0-2.0); EOSINOPHILS # (AUTO) 0.1 K/uL (0.0-0.7); EOSINOPHILS % (AUTO) 0.5 % (0.0-7.0); HEMATOCRIT 27.5 % (31.2-41.9); LYMPHOCYTES # (AUTO) 1.2 K/uL (0.8-4.8); LYMPHOCYTES % (AUTO) 12.4 % (20.5-51.5); MEAN CORPUSCULAR HEMOGLOBIN 22.8 uug (24.7-32.8); MEAN CORPUSCULAR HGB CONC 33 g/dL (32.3-35.6); MEAN CORPUSCULAR VOLUME 69.8 fL (75.5-95.3); MONOCYTES # (AUTO) 0.6 K/uL (0.1-1.30); MONOCYTES % (AUTO) 5.9 % (0.0-11.0); NEUTROPHILS # (AUTO) 8.1 K/uL (1.8-8.9); NEUTROPHILS % (AUTO) 80.8 % (38.5-71.5); PLATELET COUNT (AUTO) 227 K/uL (179-408); RED BLOOD CELL COUNT(AUTO) 3.94 MIL/uL (3.63-4.92); RED CELL DISTRIBUTION WIDTH 15.9 % (12.3-17.7)
[2023-08-20 08:05] LABS: DIFFERENTIAL COMMENT 1
[2023-08-20 08:22] LABS: CALCIUM 8.8 mg/dL (8.5-10.1); CARBON DIOXIDE 26 mmol/L (21-32); CHLORIDE 97 mmol/L (98-107); CREATININE 0.6 mg/dL (0.6-1.3); GLUCOSE 186 mg/dL (74-106); POTASSIUM 4.3 mmol/L (3.5-5.1); SODIUM SERUM 132 mmol/L (136-145); UREA NITROGEN, BLOOD 23 mg/dL (7-18)
[2023-08-20] MEDS: CETIRIZINE HCL 10 MG TABLET PO PRN (08:48)
[2023-08-20 08:52] VITALS: BP 110/62; TEMP 97.6; O2SAT 97
[2023-08-20 16:00] VITALS: BP 118/65; TEMP 97.8; O2SAT 98
[2023-08-20 20:00] VITALS: BP 117/56; TEMP 98.1; O2SAT 95
[2023-08-21 04:00] VITALS: BP 122/40; TEMP 98; O2SAT 96
[2023-08-21 07:38] LABS: CALCIUM 8.9 mg/dL (8.5-10.1); CARBON DIOXIDE 27 mmol/L (21-32); CHLORIDE 99 mmol/L (98-107); CREATININE 0.5 mg/dL (0.6-1.3); GLUCOSE 174 mg/dL (74-106); MAGNESIUM 1.7 mg/dL (1.8-2.4); PHOSPHOROUS 4.3 mg/dL (2.5-4.9); POTASSIUM 3.9 mmol/L (3.5-5.1); SODIUM SERUM 134 mmol/L (136-145); UREA NITROGEN, BLOOD 18 mg/dL (7-18)
[2023-08-21 07:51] LABS: BASOPHILS % (AUTO) 0.8 % (0.0-2.0); EOSINOPHILS # (AUTO) 0.2 K/uL (0.0-0.7); EOSINOPHILS % (AUTO) 2.7 % (0.0-7.0); HEMATOCRIT 27.4 % (31.2-41.9); HEMOGLOBIN 8.9 g/dL (10.9-14.3); LYMPHOCYTES # (AUTO) 1.5 K/uL (0.8-4.8); MEAN CORPUSCULAR HEMOGLOBIN 22.8 uug (24.7-32.8); MEAN CORPUSCULAR HGB CONC 33 g/dL (32.3-35.6); MEAN CORPUSCULAR VOLUME 70.1 fL (75.5-95.3); MONOCYTES # (AUTO) 0.4 K/uL (0.1-1.30); MONOCYTES % (AUTO) 7.8 % (0.0-11.0); NEUTROPHILS # (AUTO) 3.6 K/uL (1.8-8.9); NEUTROPHILS % (AUTO) 62.7 % (38.5-71.5); PLATELET COUNT (AUTO) 220 K/uL (179-408); RED CELL DISTRIBUTION WIDTH 16.7 % (12.3-17.7); WHITE BLOOD COUNT (AUTO) 5.7 K/uL (3.8-11.8)
[2023-08-21 08:00] LABS: DIFFERENTIAL COMMENT 1
[2023-08-21] MEDS: MAGNESIUM OXIDE 400 MG TABLET PO SCH (09:43)
[2023-08-21] MEDS: NEPRO (VANILLA) 237 ML CAN PO SCH (10:36)
[2023-08-21 10:52] VITALS: BP 116/47; TEMP 98.5; O2SAT 99
[2023-08-21 15:38] VITALS: BP 110/55; TEMP 98.7; O2SAT 96
[2023-08-21 20:00] VITALS: BP 110/55; TEMP 98.1; O2SAT 98
[2023-08-22 05:06] VITALS: BP 132/55; TEMP 98.2; O2SAT 99
[2023-08-22 07:48] LABS: BASOPHILS % (AUTO) 0.6 % (0.0-2.0); EOSINOPHILS # (AUTO) 0.1 K/uL (0.0-0.7); EOSINOPHILS % (AUTO) 2.3 % (0.0-7.0); HEMATOCRIT 27.5 % (31.2-41.9); HEMOGLOBIN 8.8 g/dL (10.9-14.3); LYMPHOCYTES # (AUTO) 1.6 K/uL (0.8-4.8); LYMPHOCYTES % (AUTO) 26.8 % (20.5-51.5); MEAN CORPUSCULAR HEMOGLOBIN 22.5 uug (24.7-32.8); MEAN CORPUSCULAR HGB CONC 32 g/dL (32.3-35.6); MEAN CORPUSCULAR VOLUME 70.6 fL (75.5-95.3); MONOCYTES # (AUTO) 0.5 K/uL (0.1-1.30); MONOCYTES % (AUTO) 8.2 % (0.0-11.0); NEUTROPHILS # (AUTO) 3.6 K/uL (1.8-8.9); NEUTROPHILS % (AUTO) 62.1 % (38.5-71.5); PLATELET COUNT (AUTO) 240 K/uL (179-408); RED CELL DISTRIBUTION WIDTH 16.8 % (12.3-17.7); WHITE BLOOD COUNT (AUTO) 5.8 K/uL (3.8-11.8)
[2023-08-22 08:00] VITALS: BP 122/56; TEMP 97; O2SAT 99
[2023-08-22 08:18] LABS: DIFFERENTIAL COMMENT 1
[2023-08-22 08:59] LABS: CARBON DIOXIDE 26 mmol/L (21-32); CHLORIDE 102 mmol/L (98-107); CREATININE 0.7 mg/dL (0.6-1.3); GLUCOSE 191 mg/dL (74-106); MAGNESIUM 1.7 mg/dL (1.8-2.4); PHOSPHOROUS 4.3 mg/dL (2.5-4.9); POTASSIUM 4.1 mmol/L (3.5-5.1); SODIUM SERUM 138 mmol/L (136-145); UREA NITROGEN, BLOOD 20 mg/dL (7-18)
[2023-08-22 20:00] VITALS: BP 130/50; TEMP 97.8; O2SAT 99
[2023-08-23 05:12] VITALS: BP 123/63; TEMP 98; O2SAT 98
[2023-08-23 08:00] VITALS: BP 148/72; TEMP 97.3; O2SAT 100
[2023-08-23 16:58] VITALS: BP 132/54; TEMP 97.7; O2SAT 100
[2023-08-23 19:55] VITALS: BP 124/47; TEMP 97.8; O2SAT 98
[2023-08-24 04:45] VITALS: BP 127/55; TEMP 97.6; O2SAT 98
[2023-08-24 12:11] VITALS: BP 107/57; TEMP 97.5; O2SAT 97
[2023-08-24 15:29] VITALS: BP 103/45; TEMP 97.7; O2SAT 98
[2023-08-24 20:00] VITALS: BP 129/54; TEMP 97.8; O2SAT 99
[2023-08-25 04:00] VITALS: BP 135/53; TEMP 97.5; O2SAT 99
[2023-08-25 07:31] LABS: BASOPHILS % (AUTO) 0.6 % (0.0-2.0); EOSINOPHILS # (AUTO) 0.1 K/uL (0.0-0.7); EOSINOPHILS % (AUTO) 2.6 % (0.0-7.0); HEMOGLOBIN 9.1 g/dL (10.9-14.3); LYMPHOCYTES # (AUTO) 1.4 K/uL (0.8-4.8); LYMPHOCYTES % (AUTO) 30.5 % (20.5-51.5); MEAN CORPUSCULAR HGB CONC 33 g/dL (32.3-35.6); MEAN CORPUSCULAR VOLUME 70.4 fL (75.5-95.3); MONOCYTES # (AUTO) 0.4 K/uL (0.1-1.30); MONOCYTES % (AUTO) 7.8 % (0.0-11.0); NEUTROPHILS # (AUTO) 2.6 K/uL (1.8-8.9); NEUTROPHILS % (AUTO) 58.5 % (38.5-71.5); PLATELET COUNT (AUTO) 203 K/uL (179-408); RED BLOOD CELL COUNT(AUTO) 3.97 MIL/uL (3.63-4.92); WHITE BLOOD COUNT (AUTO) 4.5 K/uL (3.8-11.8)
[2023-08-25 07:46] VITALS: BP 117/52; TEMP 97.7; O2SAT 99
[2023-08-25 07:52] LABS: DIFFERENTIAL COMMENT 1
[2023-08-25 07:56] LABS: CARBON DIOXIDE 29 mmol/L (21-32); CHLORIDE 102 mmol/L (98-107); CREATININE 0.7 mg/dL (0.6-1.3); GLUCOSE 133 mg/dL (74-106); MAGNESIUM 1.6 mg/dL (1.8-2.4); PHOSPHOROUS 4.1 mg/dL (2.5-4.9); POTASSIUM 3.7 mmol/L (3.5-5.1); SODIUM SERUM 138 mmol/L (136-145); UREA NITROGEN, BLOOD 23 mg/dL (7-18)
[2023-08-25] MEDS: MAGNESIUM OXIDE 400 MG TABLET PO ONE (12:19)
[2023-08-25 15:38] VITALS: BP 106/49; TEMP 97.4; O2SAT 98
== END 2023-08-25 18:45 | disposition home health service (06) | DRG 193 ==
LOC: UNDOADMIN 13:13
PROVIDERS: ADMIT Physical Medicine & Rehabilitation Pain Medicine; ATTEND Physical Medicine & Rehabilitation Pain Medicine
DX: J18.9 Pneumonia, unspecified organism (principal); G92.8 Other toxic encephalopathy; I21.A1 Myocardial infarction type 2; I50.33 Acute on chronic diastolic (congestive) heart failure; J98.11 Atelectasis; D68.59 Other primary thrombophilia; E87.1 Hypo-osmolality and hyponatremia; I45.2 Bifascicular block; I11.0 Hypertensive heart disease with heart failure; F03.90 Unspecified dementia, unspecified severity, without behavioral disturbance, psychotic disturbance, mood disturbance, and anxiety; I25.10 Atherosclerotic heart disease of native coronary artery without angina pectoris; J20.9 Acute bronchitis, unspecified; J45.909 Unspecified asthma, uncomplicated; K21.9 Gastro-esophageal reflux disease without esophagitis; R19.5 Other fecal abnormalities; E11.9 Type 2 diabetes mellitus without complications; E78.5 Hyperlipidemia, unspecified; Z87.440 Personal history of urinary (tract) infections; D50.9 Iron deficiency anemia, unspecified; E83.42 Hypomagnesemia; H91.90 Unspecified hearing loss, unspecified ear; I70.0 Atherosclerosis of aorta; Z88.0 Allergy status to penicillin
CPT/HCPCS: 36415; 70030-TC; 71045; 82747; 83735; 83921; 84100; 84443; 85014; 85025; 97535-GO-CO; A4663; A6213; J0692; J2405; J3475; Q0144